=== PATIENT | female | born 1995 | race Caucasian/White ===

== ENCOUNTER 2016-07-20 16:57 | Emergency (ER) | payer MEDICAID ==
[~2016-07-20] VITALS: Ht 160 cm; Wt 91.6 kg
[~2016-07-20 16:57] MED LIST: METR-1 PO; [UNRECOGNIZED DRUG - OTHER]
[2016-07-20 17:04] VITALS: BP 116/65; PULSE 70; RESP 14; TEMP 98.8; O2SAT 97
[2016-07-20 17:31] LABS: BLOOD, URINE NEG (NEG); GLUCOSE,URINE NEG (NEG); KETONE, URINE NEG (NEG); NITRITE,URINE NEG (NEG); PH, URINE 5.5 (5.0-8.5)
[2016-07-20 17:40] LABS: SQUAMOUS EPITHELIAL CELL URINE 0-5 /hpf (0-5); URINE COLOR YELLOW (YELLW/STRAW); WBC, URINE 0-2 /hpf (0-5)
[2016-07-20 17:41] LABS: COMMENT (UR) CULT NOT INDICATED; CULTURE IF INDICATED CULT NOT INDICATED
--- NOTE | 2016-07-20 17:55 | PD ---
HPI Chief Complaint: Abdominal Pain Time Seen by Provider: 17:40 Travel History International Travel<30 days: No Contact w/Intl Traveler<30days: No Traveled to known affect area: No History of Present Illness HPI This 20-year-old female is 3 problems like addressed. She is having some pain in the mid thoracic spine. The pain is aggravated by certain movements. She does have a [id number] child. She also has pain in her left ankle. She says she twisted the ankle about 3 weeks ago. It is still swollen and painful. She is able to bear weight. She is also having some lower abdominal pain. She had a pelvic infection related to her IUD and was given a course of antibiotics a few weeks ago. She is having lower abdominal pain and some pain with bowel movements PFSH Past Medical History Medical History: Denies Significant Hx Diminished Hearing: No Influenza Vaccination: Yes ?: Not Social History Alcohol Use: No Tobacco Use: No Substance Use: Yes (marijuana) Allergies-Medications (Allergen,Severity, Reaction): Coded Allergies: No Known Allergies (Unverified , 07/20/16) Reported Meds & Prescriptions Reported Meds & Active Scripts Active Doxycycline Hyclate 100 Mg Cap 100 Mg PO BID Review of Systems General / Constitutional: No: Fever, Chills Eyes: No: Diploplia, Blurred Vision HENT: No: Headaches, Vertigo Cardiovascular: No: Chest Pain or Discomfort Respiratory: No: Cough, Shortness of Breath Gastrointestinal: No: Vomiting, Diarrhea Genitourinary: Positive: Pelvic Pain, No: Dysuria Musculoskeletal: Positive: Arthralgias, Pain, No: Myalgias Skin: No Rash Hematologic/Lymphatic: No: Easy Bruising Physical Exam Narrative GENERAL: Well-developed female SKIN: Warm and dry. HEAD: Atraumatic. Normocephalic. EYES: Pupils equal and round. No scleral icterus. No injection or drainage. ENT: No nasal bleeding or discharge. Mucous membranes pink and moist. NECK: Trachea midline. No JVD. CARDIOVASCULAR: Regular rate and rhythm. No murmur appreciated. RESPIRATORY: No accessory muscle use. Clear to auscultation. Breath sounds equal bilaterally. GASTROINTESTINAL: Abdomen soft, non-tender, nondistended. Hepatic and splenic margins not palpable. Pelvic: The string of the IUD is visible. There is pain with movement of the cervix. There is minimal discharge which has been sent for culture. No adnexal masses MUSCULOSKELETAL: No obvious deformities. No clubbing. No cyanosis. There is no localized tenderness of the lower thoracic spine. She appears to move well. There is no distal numbness or weakness. She has swelling and tenderness of the lateral aspect of the left ankle. NEUROLOGICAL: Awake and alert. No obvious cranial nerve deficits. Motor grossly within normal limits. Normal speech. PSYCHIATRIC: Appropriate mood and affect; insight and judgment normal. Data Data Last Documented VS Vital Signs Date Time Temp Pulse Resp B/P Pulse Ox O2 Delivery O2 Flow Rate FiO2 07/20/16 17:04 98.8 70 14 116/65 97 Orders Urinalysis - C+S If Indicated (07/20/16 16:59) Ed Urine Pregnancytest Poc (07/20/16 16:59) Ankle, Complete ([id number]) (07/20/16 17:51) Gc And Chlamydia Pcr (07/20/16 18:28) Ceftriaxone Inj (Rocephin Inj) (07/20/16 18:30) Lidocaine 1% Inj (50 Ml) (Xylocaine 1% I (07/20/16 18:30) Labs Laboratory Tests Test 07/20/16 17:20 Urine Color YELLOW Urine Turbidity SLIGHT Urine pH 5.5 Urine Specific [place] 1.025 Urine Protein NEG mg/dL Urine Glucose (UA) NEG mg/dL Urine Ketones NEG mg/dL Urine Occult Blood NEG Urine Nitrite NEG Urine Bilirubin NEG Urine Leukocyte Esterase NEG Urine WBC 0-2 /hpf Urine Squamous Epithelial 0-5 /hpf Cells Microscopic Urinalysis Comment CULT NOT INDICATED MDM Medical Decision Making Medical Screen Exam Complete: Yes Emergency Medical Condition: Yes Medical Record Reviewed: Yes Differential Diagnosis Differential includes musculoskeletal back pain, ankle sprain, cervicitis, PID Narrative Course The back pain appears to be musculoskeletal versus suspect from lifting. She has a [id number] child. Her pelvic pain and I suspect is cervicitis related to her IUD. She has received a course of antibiotics as she does not what it was. I will give Rocephin and doxycycline. I have cautioned her that she may need to have the iud removed. X-ray of the ankle is negative for fracture Diagnosis Primary Impression: Cervicitis Additional Impression: Ankle sprain Qualified Code: S93.432A - Sprain of tibiofibular ligament of left ankle, initial encounter Scripts Doxycycline Hyclate 100 Mg [id number] Mg PO BID #20 CAP Prov:Joshua Braun MD 07/20/16 Disposition: 01 DISCHARGE HOME Condition: Serious Joshua Braun MD Jul 20, 2016 17:55
[2016-07-20] MEDS ORDERED: LIDOCAINE HCL 1% 50 ML VIAL IM ONE (18:30)
[2016-07-20] MEDS ORDERED: cefTRIAXone 250 MG VIAL IM ONE (18:30)
[2016-07-20] MEDS ORDERED: DOXY100C PO (18:32)
--- NOTE | 2016-07-20 19:19 | RADHPO ---
EXAM DATE/TIME: 07/20/2016 18:30 [facility] COMPARISON: No previous studies available for comparison. INDICATIONS : Left ankle pain from trauma. MEDICAL HISTORY : None. SURGICAL HISTORY : None. ENCOUNTER: Initial ACUITY: 1 day PAIN SCORE: 4/10 LOCATION: lateral side of left ankle. FINDINGS: No definite fractures, or dislocations are identified. No definite lytic or sclerotic lesion is seen . The joint spaces are well maintained. CONCLUSION: Unremarkable study. Yenifer Summers MD on July 20, 2016 at 19:17 Board Certified Radiologist. This report was verified electronically.
[2016-07-20 20:00] VITALS: BP 118/65; PULSE 70; RESP 18; O2SAT 97
[2016-07-20 21:33] LABS: CHLAMYDIA PCR NOT DETECTED (NOT DETECT); NEISSERIA PCR NOT DETECTED (NOT DETECT)
== END 2016-07-20 20:01 | disposition home or self-care (01) ==
LOC: PHEFT 16:57 → PHED 20:01
DX: N72 Inflammatory disease of cervix uteri (principal); S93.402A Sprain of unspecified ligament of left ankle, initial encounter; X50.0XXA Overexertion from strenuous movement or load, initial encounter; X50.1XXA Overexertion from prolonged static or awkward postures, initial encounter; Y93.9 Activity, unspecified; Y92.9 Unspecified place or not applicable
CPT/HCPCS: 73610; 81001; 84703; 87491; 87591; 96372; 99284; J0696

== ENCOUNTER → 2017-02-02 | Outpatient (CLI) | payer MEDICAID ==
[~2017-02-02] MED LIST changes: +DOXY10TA PO; -METR-1 PO; +PRENTAB14; +RANI150T PO; -[UNRECOGNIZED DRUG - OTHER]
== END ==
LOC: HPND 09:18
PROVIDERS: ATTEND Family Medicine
DX: Z36 Encounter for antenatal screening of mother (principal)
CPT/HCPCS: 76801

== ENCOUNTER → 2017-03-09 | Outpatient (CLI) | payer MEDICAID ==
[~2017-03-09] MED LIST changes: +INFL1INJ56 IM
== END ==
LOC: HPND 09:49
PROVIDERS: ATTEND Family Medicine
DX: O99.212 Obesity complicating pregnancy, second trimester (principal); E66.09 Other obesity due to excess calories; Z68.30 Body mass index [BMI] 30.0-30.9, adult; Z36.3 Encounter for antenatal screening for malformations
CPT/HCPCS: 76805

== ENCOUNTER → 2017-04-06 | Outpatient (CLI) | payer MEDICAID ==
[~2017-04-06] MED LIST changes: -INFL1INJ56 IM; +PREN28TA2; -PRENTAB14
== END ==
LOC: HPND 09:07
PROVIDERS: ATTEND Family Medicine
DX: O99.212 Obesity complicating pregnancy, second trimester (principal); E66.09 Other obesity due to excess calories; Z68.30 Body mass index [BMI] 30.0-30.9, adult
CPT/HCPCS: 76816

== ENCOUNTER 2017-08-07 19:17 | Inpatient (IN) | payer MEDICAID ==
[2017-08-07] VITALS (43 sets, daily range): PULSE 61–95
[~2017-08-07] VITALS: Ht 160 cm; Wt 85.7 kg
[~2017-08-07 19:17] MED LIST changes: +FERR325T18 PO
[2017-08-07] MEDS ORDERED: SODIUM CHLOR 0.9% 1000 ML INJ 1,000 ML OTHER PRN (20:03)
[2017-08-07] MEDS ORDERED: LACTATED RINGER'S 1000 ML INJ 1,000 ML IV PRN (20:07)
--- NOTE | 2017-08-07 20:10 | HHI.HP ---
HPI Chief Complaint Induction for Lie Instability Date Seen: Aug 07, 2017 Time Seen: 20:00 Travel History International Travel<30 Days: No Contact w/Intl Traveler<30Days: No History of Present Illness HPI Mrs. Vick is a 21-year-old at 40/0 weeks gestation presenting induction secondary to lie instability. Patient stats that over the last week she felt a "really strong kick like the baby moved." At her appointment 2 weeks ago , bedside US showed a vertex fetus, however the week before exam showed a transverse lie. Due to having a Bishops score of 6 in the office on 08/06, it was decided she should be induced at 40 weeks. Currently she has no complaints at this time. She endorses good movement and denies any loss of fluid, vaginal discharge, vaginal bleeding, or dysuria. She also denies a complete review of systems including but not limited to any fevers, chills, shortness of breath, chest pain, MBD, abdominal pain, or calf tenderness. 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 Patient had hemorrhage secondary to uterine atony requiring blood transfusion and multiple medications to assist with hemostasis. Menarche: 12 History of irregular periods every 60 days lasting approximately 3-5 days with moderate bleeding. Past Surgical History Narrative Surgical Past surgical history: None reported Family History Narrative Family History Family history: No significant family medical history reported No reported complications within the family Social History Narrative Social History Social history: Patient currently lives in [facility] with her and son. 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 Tobacco history: Denies tobacco history Medical history: Denies alcohol history Illicit drug history: Denies illicit drug history STI/HIV history: Denies history Allergies-Medications (Allergen,Severity, Reaction): Coded Allergies: No Known Allergies (Unverified Allergy, Unknown, 08/07/17) Home Meds Active Scripts Ferrous Sulfate (Ferrous Sulfate) 325 Mg (65 Mg Iron) Tablet, 325 MG PO DAILY for Nutritional Supplement, #30 TAB 3 Refills Prov:Tremaine Guerra MD R2 06/14/17 Reported Medications Pnv No.95/Ferrous Fum/Folic AC ( Tablet) 1 Each Tablet 12/26/16 Discontinued Scripts Doxylamine-Pyridoxine (Diclegis) 10-10 Mg Tab, 1 TAB PO TID Y for NAUSEA OR VOMITING, #90 TAB 1 Refill Prov:Tremaine Guerra MD R2 01/19/17 Ranitidine (Ranitidine) 150 Mg Tab, 150 MG PO BID for Heartburn Management, #60 TAB 1 Refill Prov:Tremaine Guerra MD R2 01/19/17 Review of Systems Except as stated in HPI: all other systems reviewed are Neg Physical Exam Narrative GENERAL: Well-nourished, well-developed patient. SKIN: Warm and dry. HEAD: Normocephalic and atraumatic. EYES: No scleral icterus. No injection or drainage. ENT: No nasal drainage noted. Mucous membranes pink. Airway patent. NECK: Supple, trachea midline. No JVD. CARDIOVASCULAR: Regular rate and rhythm without murmurs, gallops, or rubs. RESPIRATORY: Breath sounds equal bilaterally. No accessory muscle use. ABDOMEN/GI: Abdomen soft, non-tender, bowel sounds present, no rebound, no guarding Gravid to 40 weeks size GENITOURINARY: External Genitalia: intact and normal in appearance Cervix: Posterior Dilatation: 2.5 cm Effacement: 50% Station: -2 Presentation: Vertex confirmed by bedside ultrasound Membranes: Intact FHT's: Category: 1 Baseline: 130s Reactive: Positive Variability: Moderate Decels: None EXTREMITIES: No cyanosis or edema. BACK: Nontender without obvious deformity. No CVA tenderness. NEUROLOGICAL: Awake and alert. Motor and sensory grossly within normal limits. Five out of 5 muscle strength in all muscle groups. Normal speech. Caprini VTE Risk Assessment Caprini VTE Risk Assessment: Mod/High Risk (score >= 2) Caprini Risk Assessment Model Point Value = 1 Point Value = 2 Point Value = 3 Point Value = 5 Age 41-60 Minor surgery BMI > 25 kg/m2 Swollen legs Varicose veins or History of unexplained or recurrent spontaneous Oral contraceptives or hormone replacement Sepsis (< 1 month) Serious lung disease, including pneumonia (< 1 month) Abnormal pulmonary function Acute myocardial infarction Congestive heart failure (< 1 month) History of inflammatory bowel disease Medical patient at bed rest Age 61-74 Arthroscopic surgery Major open surgery (> 45 min) Laparoscopic surgery (> 45 min) Malignancy Confined to bed (> 72 hours) Immobilizing plaster cast Central venous access Age >= 75 History of VTE Family history of VTE Factor V Leiden Prothrombin [id number] Lupus anticoagulant Anticardiolipin antibodies Elevated serum homocysteine Heparin-induced thrombocytopenia Other congenital or acquired thrombophilia Stroke (< 1 month) Elective arthroplasty Hip, pelvis, or leg fracture Acute spinal cord injury (< 1 month) Prophylaxis Regimen Total Risk Factor Score Risk Level Prophylaxis Regimen 0-1 Low Early ambulation 2 Moderate Order ONE of the following: *Sequential Compression Device (SCD) *Heparin 5000 units SQ BID 3-4 Higher Order ONE of the following medications: *Heparin 5000 units SQ TID *Enoxaparin/Lovenox 40 mg SQ daily (WT < 150 kg, CrCl > 30 mL/min) *Enoxaparin/Lovenox 30 mg SQ daily (WT < 150 kg, CrCl > 10-29 mL/min) *Enoxaparin/Lovenox 30 mg SQ BID (WT < 150 kg, CrCl > 30 mL/min) AND/OR *Sequential Compression Device (SCD) 5 or more Highest Order ONE of the following medications: *Heparin 5000 units SQ TID (Preferred with Epidurals) *Enoxaparin/Lovenox 40 mg SQ daily (WT < 150 kg, CrCl > 30 mL/min) *Enoxaparin/Lovenox 30 mg SQ daily (WT < 150 kg, CrCl > 10-29 mL/min) *Enoxaparin/Lovenox 30 mg SQ BID (WT < 150 kg, CrCl > 30 mL/min) AND *Sequential Compression Device (SCD) Data Data Vital Signs Reviewed: Yes Orders Orders Admit To Inpatient (08/07/17 ) Activity Oob Ad Lien (08/07/17 20:03) ^ Labor Induction (08/07/17 20:03) ^ Vaginal Insert (08/07/17 20:03) ^ Vaginal Lavage (08/07/17 20:03) Heart (08/07/17 20:03) Sodium Chloride 0.9% Flush (Ns Flush) (08/07/17 21:00) Sodium Chloride 0.9% Flush (Ns Flush) (08/07/17 20:15) Sodium Chlor 0.9% 1000 Ml Inj (Ns 1000 M (08/07/17 20:03) Dinoprostone Vag Insert (Cervidil Vag In (08/07/17 20:15) Inpatient Certification (08/07/17 ) Diet Regular Basic (08/07/17 Dinner) Code Status (08/07/17 20:07) Vital Signs (Adult) .Per protocol (08/07/17 20:07) Heart (08/07/17 20:07) Amnioinfusion (08/07/17 20:07) Urinary Catheter Management .ONCE (08/07/17 20:07) Lactated Ringer's 1000 Ml Inj (Lr 1000 M (08/07/17 20:07) Lactated Ringer's 1000 Ml Inj (Lr 1000 M (08/07/17 20:07) Sodium Chlorid 0.9% 500 Ml Inj (Ns 500 M (08/07/17 20:15) Sodium Chlor 0.9% 1000 Ml Inj (Ns 1000 M (08/07/17 20:27) Lidocaine 1% Inj (50 Ml) (Xylocaine 1% I (08/07/17 20:15) Citric Acid-Sodium Citrate Liq (Bicitra (08/07/17 20:15) Ondansetron Inj (Zofran Inj) (08/07/17 20:15) Fentanyl Inj (Fentanyl Inj) (08/07/17 20:15) Fentanyl Inj (Fentanyl Inj) (08/07/17 20:15) Complete Blood Count With Diff (08/07/17 20:07) Hold Clot (08/07/17 20:07) Abo/Rh Blood Type (08/07/17 20:07) Urinalysis - C+S If Indicated (08/07/17 20:07) Drug Screen, Random Urine (08/07/17 20:07) Ob/Psych Drug Screen, Urine (08/07/17 20:07) Resp Oxygen Non Rebreathe Mask (08/07/17 ) ^ Epidural / Intrathecal Infus (08/07/17 20:07) Oxytocin 30 Units-500ml Premix (Pitocin (08/07/17 20:15) Lidocaine 1% Inj (50 Ml) (Xylocaine 1% I (08/07/17 20:15) Light Mineral Oil (Muri-Lube Oil) (08/07/17 20:15) Specimen To Be Collected PRN (08/07/17 20:07) Specimen To Be Collected PRN (08/07/17 20:07) Group B Strep: Negative Assessment/Plan Problem List: (1) 40 weeks gestation of ICD Codes: Z3A.40 - 40 weeks gestation of Status: Acute Assessment and Plan Mrs. Vick is a 21-year-old percent and 40/0 weeks gestation for scheduled induction due to instability. 1. 40 weeks gestation -Continue antepartum care -Encourage oral hydration and vitamin -FHT category 1, reassuring -Bedside ultrasound performed by Dr. Sarmiento, ASSOCIATE BUSINESS ANALYST, confirms vertex positioning at this time with no other abnormalities appreciated -Plan for with augmentation after cervical ripening with Cervidil overnight 2. Anemia -Continue iron supplementation -CBC pending SDW: Dr. Sarmiento Discharge Planning Pending clinical course Tremaine Guerra MD R2 Aug 07, 2017 20:09
[2017-08-07] MEDS: LACTATED RINGER'S 1000 ML INJ 1,000 ML IV SCH (20:14)
[2017-08-07] MEDS ORDERED: OXYTOCIN 30 UNITS-500ML PREMIX 500 ML IV ONE (20:15)
[2017-08-07] MEDS ORDERED: SODIUM CHLORID 0.9% 500 ML INJ 500 ML IV PRN (20:15)
[2017-08-07] MEDS ORDERED: SODIUM CHLORIDE 0.9% FLUSH 10 ML FLUSH IV FLUSH PRN (20:15)
[2017-08-07] MEDS ORDERED: MINERAL OIL 10 ML VIAL TOPICAL PRN (20:15)
[2017-08-07] MEDS ORDERED: DINOPROSTONE 10 MG VAG INSERT VAGINAL ONE (20:15)
[2017-08-07] MEDS ORDERED: ONDANSETRON HCL 4 MG/2 ML VIAL IV PUSH PRN (20:15)
[2017-08-07] MEDS ORDERED: LIDOCAINE HCL 1% 50 ML VIAL I-DERMAL PRN (20:15)
[2017-08-07] MEDS ORDERED: CITRIC ACID-SODIUM CITRATE LIQ 30 ML UDC PO SCH (20:15)
[2017-08-07] MEDS ORDERED: LIDOCAINE HCL 1% 50 ML VIAL INFIL PRN (20:15)
[2017-08-07] MEDS: SODIUM CHLORIDE 0.9% FLUSH 10 ML FLUSH IV FLUSH SCH (20:23)
[2017-08-07] MEDS ORDERED: SODIUM CHLOR 0.9% 1000 ML INJ 1,000 ML IV PRN (20:27)
[2017-08-07] MEDS ORDERED: ZOLPIDEM TARTRATE 5 MG TAB PO PRN (20:45)
[2017-08-07 21:31] LABS: BACTERIA, URINE RARE /hpf; BILIRUBIN, URINE NEG (NEG); BLOOD, URINE NEG (NEG); GLUCOSE,URINE NEG (NEG); KETONE, URINE NEG (NEG); MUCUS URINE FEW /lpf (OCC); NITRITE,URINE NEG (NEG); PH, URINE 5.5 (5.0-8.5); SQUAMOUS EPITHELIAL CELL URINE 2 /hpf (0-5); URINE COLOR LIGHT-YELLOW (YELLW/STRAW); URINE LEUKOCYTE ESTERASE SMALL (NEG)
[2017-08-07 21:50] LABS: BASOPHIL # 0.1 TH/MM3 (0-0.2); BASOPHIL % 0.5 % (0.0-2.0); EOSINOPHIL # 0.1 TH/MM3 (0-0.4); HEMATOCRIT 32.1 % (35.0-46.0); HEMOGLOBIN 10.7 GM/DL (11.6-15.3); LYMPH % 24.2 % (9.0-44.0); LYMPHOCYTE # 2.6 TH/MM3 (1.0-4.8); MEAN CELL VOLUME 76.5 FL (80.0-100.0); MEAN CORPUSCULAR HEMOGLOBIN 25.4 PG (27.0-34.0); MEAN CORPUSCULAR HGB CONC 33.2 % (32.0-36.0); MEAN PLATELET VOLUME 9.4 FL (7.0-11.0); MONO % 8.4 % (0.0-8.0); MONOCYTE # 0.9 TH/MM3 (0-0.9); NEUT % 65.9 % (16.0-70.0); PLATELET COUNT 225 TH/MM3 (150-450); RED CELL DISTRIBUTION WIDTH 15.6 % (11.6-17.2); WHITE BLOOD COUNT 10.5 TH/MM3 (4.0-11.0)
[2017-08-07 22:36] LABS: BANDS 5 % (0-6); LYMPHOCYTES 22 % (9-44); MONOCYTES 9 % (0-8); NEUTROPHIL # MANUAL DIFF 7.2 TH/MM3 (1.8-7.7); POLYS (SEG NEUTROPHILS) 64 % (16-70)
[2017-08-07 22:38] LABS: TOXIC GRANULATION 3+ (NORMAL)
[2017-08-08] VITALS (228 sets, daily range): BP systolic 70–158; BP diastolic 42–118; PULSE 52–245; RESP 0–20; TEMP 98.1–98.7
--- NOTE | 2017-08-08 08:47 | PD.LABORPN ---
Subjective Subjective Patient seen and examined this morning with at bedside. Patient did well overnight without complaints. She endorses good movement and denies any loss of fluid, vaginal discharge, vaginal bleeding or dysuria. She also denies any recent fevers, chills, SOB, chest pain, NVD, or calf tenderness. Objective Vital Signs Vital Signs Date Time Temp Pulse Resp B/P (MAP) Pulse Ox O2 Delivery O2 Flow Rate FiO2 08/08/17 07:55 58 08/08/17 07:50 73 08/08/17 07:40 62 08/08/17 07:35 59 08/08/17 07:30 63 18 08/08/17 07:25 98.1 08/08/17 07:25 64 114/67 (83) 08/08/17 07:25 54 08/08/17 07:20 58 08/08/17 07:15 59 08/08/17 07:10 61 08/08/17 07:05 52 08/08/17 06:55 57 08/08/17 06:50 61 08/08/17 06:45 62 08/08/17 06:40 62 08/08/17 06:35 68 08/08/17 06:30 61 08/08/17 06:25 69 08/08/17 06:20 73 08/08/17 06:15 59 08/08/17 06:10 66 08/08/17 06:05 63 08/08/17 06:00 64 08/08/17 05:55 57 08/08/17 05:45 136 08/08/17 05:40 76 08/08/17 05:35 69 08/08/17 05:30 59 08/08/17 05:25 67 08/08/17 05:20 62 08/08/17 05:15 65 08/08/17 05:10 62 08/08/17 05:05 63 08/08/17 05:00 62 08/08/17 04:55 61 08/08/17 04:50 77 08/08/17 04:44 62 110/55 (73) 08/08/17 04:43 98.4 16 08/08/17 04:40 56 08/08/17 04:35 63 08/08/17 04:30 63 08/08/17 04:25 63 08/08/17 04:20 66 08/08/17 04:15 64 08/08/17 04:10 68 08/08/17 04:05 68 08/08/17 04:00 62 08/08/17 03:55 57 08/08/17 03:50 63 08/08/17 03:45 90 08/08/17 03:40 57 08/08/17 03:35 59 08/08/17 03:30 55 08/08/17 03:25 71 08/08/17 03:20 71 08/08/17 03:15 72 08/08/17 03:10 62 08/08/17 03:05 67 08/08/17 03:00 57 08/08/17 02:55 62 08/08/17 02:50 59 08/08/17 02:45 66 08/08/17 02:40 66 08/08/17 02:35 71 08/08/17 02:30 66 08/08/17 02:25 65 08/08/17 02:20 71 08/08/17 02:15 70 08/08/17 02:10 74 08/08/17 02:05 72 08/08/17 02:00 75 08/08/17 01:55 72 08/08/17 01:50 70 08/08/17 01:45 77 08/08/17 01:40 78 08/08/17 01:35 68 08/08/17 01:30 68 08/08/17 01:25 68 08/08/17 01:20 65 08/08/17 01:15 67 08/08/17 01:10 70 08/08/17 01:05 69 08/08/17 01:00 66 08/08/17 00:55 65 08/08/17 00:50 61 08/08/17 00:45 67 08/08/17 00:40 71 08/08/17 00:35 73 Objective Pelvic Exam: Cervix: Posterior Dilatation: 3-4cm Effacement: 75% Station: -2 Presentation: [-] Membranes: Intact Uterine Contractions: Q3-4m Cervidil Removed FHT's: Category: 1 Baseline: 140s Reactive: Positive Variability: Moderate Decels: None Weeks Gestation: 40 Assessment/Plan Problem List: (1) 40 weeks gestation of ICD Codes: Z3A.40 - 40 weeks gestation of Status: Acute Assessment and Plan Mrs. Vick is a 21-year-old percent and 40/1 weeks gestation for scheduled induction due to instability. 1. 40 weeks gestation -Continue antepartum care -Encourage oral hydration and vitamin -FHT category 1, reassuring -Bedside ultrasound performed by Dr. Sarmiento, [employer]OL[employer]ER, confirms vertex positioning at this time with no other abnormalities appreciated on limited study -Cervidil removed without complications -Patient priti currently every 3-4 minutes, plan to augment labor with Pitocin at this time -Patient to be NPO going forward 2. Anemia -Continue iron supplementation -H/H 10.7/32.1 3. GBS -Negative SDW: Dr. Sarmiento WDW: Tremaine Bhatt MD R2 Aug 08, 2017 08:47
[2017-08-08] MEDS: SODIUM CHLORIDE 0.9% FLUSH 10 ML FLUSH IV FLUSH SCH (09:00)
[2017-08-08] MEDS ORDERED: OXYTOCIN 30 UNITS-500ML PREMIX 500 ML IV PRN (09:30)
[2017-08-08] MEDS: FERROUS SULFATE 325 MG (65 MG ELEMENTAL IRON) TAB PO SCH (09:43)
[2017-08-08] MEDS: LACTATED RINGER'S 1000 ML INJ 1,000 ML IV SCH ×2 (12:07→14:36)
[2017-08-08] MEDS ORDERED: fentaNYL 2MCG-BUPIV 0.125% INJ 100 ML ONE (12:21)
[2017-08-08] MEDS ORDERED: ePHEDrine/NS 25 MG/5 ML SYRINGE ONE (12:21)
[2017-08-08] MEDS ORDERED: DO NOT ADMINISTER ANTICOAGULANTS PRN (13:30)
[2017-08-08] MEDS ORDERED: fentaNYL 2MCG-BUPIV 0.125% 100 ML EPIDURAL SCH (13:30)
[2017-08-08] MEDS ORDERED: NO SYSTEM NARCOTICS PRN (13:30)
[2017-08-08] MEDS ORDERED: ePHEDrine/NS 25 MG/5 ML SYRINGE IV PUSH PRN (13:30)
--- NOTE | 2017-08-08 14:56 | PD.LABORPN ---
Subjective Subjective Patient seen and evaluated. Patient progressing well and is without complaints. SROM at approximately 1316 with clear fluid. Patient then had epidural placed without complications. She endorses good movement and denies any fevers, chills, SOB, chest pain, NVD, vaginal bleeding, or vaginal discharge. Objective Vital Signs Vital Signs Date Time Temp Pulse Resp B/P (MAP) Pulse Ox O2 Delivery O2 Flow Rate FiO2 08/08/17 14:25 70 08/08/17 14:20 82 08/08/17 14:15 72 08/08/17 14:15 78 112/70 (84) 08/08/17 14:01 73 111/65 (80) 08/08/17 14:00 91 08/08/17 14:00 91 08/08/17 13:55 87 08/08/17 13:55 89 08/08/17 13:50 79 08/08/17 13:50 80 08/08/17 13:45 76 08/08/17 13:45 80 08/08/17 13:45 79 116/73 (87) 08/08/17 13:40 73 08/08/17 13:40 74 08/08/17 13:35 77 08/08/17 13:35 75 08/08/17 13:30 75 08/08/17 13:30 76 121/74 (90) 08/08/17 13:30 74 08/08/17 13:25 80 08/08/17 13:25 79 08/08/17 13:20 75 08/08/17 13:20 73 08/08/17 13:15 85 08/08/17 13:15 74 08/08/17 13:15 74 121/80 (94) 08/08/17 13:10 70 08/08/17 13:10 71 08/08/17 13:05 77 08/08/17 13:05 70 08/08/17 13:00 65 08/08/17 13:00 68 08/08/17 13:00 67 107/67 (80) 08/08/17 12:55 67 08/08/17 12:55 69 08/08/17 12:50 68 104/70 (81) 08/08/17 12:50 73 08/08/17 12:50 71 08/08/17 12:45 83 08/08/17 12:45 66 106/72 (83) 08/08/17 12:45 67 08/08/17 12:41 88 112/63 (79) 08/08/17 12:40 84 08/08/17 12:40 85 08/08/17 12:35 78 08/08/17 12:35 98 08/08/17 12:35 99 115/63 (80) 08/08/17 12:30 60 08/08/17 12:30 65 08/08/17 12:30 63 115/77 (90) 08/08/17 12:28 70 118/70 (86) 08/08/17 12:25 87 08/08/17 12:20 82 128/78 (95) 08/08/17 12:20 74 08/08/17 12:15 78 08/08/17 12:10 89 08/08/17 12:05 84 08/08/17 12:00 85 08/08/17 12:00 80 116/67 (83) 08/08/17 12:00 98.7 08/08/17 11:55 75 08/08/17 11:50 66 08/08/17 11:45 68 08/08/17 11:41 70 122/74 (90) 08/08/17 11:40 90 08/08/17 11:30 72 08/08/17 11:25 95 08/08/17 11:20 90 08/08/17 11:20 73 117/75 (89) 08/08/17 11:15 89 08/08/17 11:10 72 08/08/17 11:05 73 08/08/17 11:00 70 120/75 (90) 08/08/17 11:00 66 08/08/17 10:55 72 08/08/17 10:50 70 08/08/17 10:45 89 08/08/17 10:40 76 119/73 (88) 08/08/17 10:40 86 08/08/17 10:35 81 08/08/17 10:30 95 08/08/17 10:25 91 08/08/17 10:20 70 08/08/17 10:20 88 114/77 (89) 08/08/17 10:15 98 08/08/17 10:10 80 08/08/17 10:05 76 08/08/17 10:00 63 08/08/17 10:00 73 114/67 (83) 08/08/17 09:55 85 08/08/17 09:50 88 08/08/17 09:47 71 08/08/17 09:45 118/78 (91) 08/08/17 09:45 81 08/08/17 09:40 81 08/08/17 09:35 77 08/08/17 09:10 61 08/08/17 09:05 104 08/08/17 09:00 93 08/08/17 08:55 76 08/08/17 08:50 73 08/08/17 08:45 64 08/08/17 08:40 54 08/08/17 08:35 68 08/08/17 08:30 62 08/08/17 08:25 63 08/08/17 08:20 64 08/08/17 08:15 63 08/08/17 08:10 57 08/08/17 08:05 57 08/08/17 08:00 57 08/08/17 07:55 58 08/08/17 07:50 73 08/08/17 07:40 62 08/08/17 07:35 59 08/08/17 07:30 63 18 08/08/17 07:25 98.1 08/08/17 07:25 64 114/67 (83) 08/08/17 07:25 54 08/08/17 07:20 58 08/08/17 07:15 59 08/08/17 07:10 61 08/08/17 07:05 52 08/08/17 06:55 57 08/08/17 06:50 61 08/08/17 06:45 62 Objective Pelvic Exam: Per staff Dilatation: 6cm Effacement: 100% Station: -1 Presentation: Vertex Membranes: SROM, clear Uterine Contractions:Q4m FHT's: Category: 1 Baseline: 140s Reactive: Positive Variability: Moderate Decels: None Weeks Gestation: 40 Assessment/Plan Problem List: (1) 40 weeks gestation of ICD Codes: Z3A.40 - 40 weeks gestation of Status: Acute Assessment and Plan Mrs. Vick is a 21-year-old percent and 40/1 weeks gestation for scheduled induction due to instability. 1. 40 weeks gestation -Continue antepartum care -Encourage oral hydration and vitamin -FHT category 1, reassuring -Bedside ultrasound performed by Dr. Sarmiento, BUTTER LIQUEFIER, confirms vertex positioning at this time with no other abnormalities appreciated on limited study -Cervidil removed without complications -Patient priti currently every 3-4 minutes, plan to augment labor with Pitocin at this time -Patient to be NPO going forward -SROM with clear fluid 2. Anemia -Continue iron supplementation -H/H 10.7/32.1 3. GBS -Negative SDW: Tremaine Bhatt MD R2 Aug 08, 2017 14:56
[2017-08-08] MEDS ORDERED: LIDOCAINE 2%/EPINEPHrine PF 1:200,000 20ML SDV ONE (15:22)
[2017-08-08] MEDS ORDERED: BUPIVACAINE HCL PF 0.25% 10 ML VIAL ONE (15:22)
[2017-08-08] MEDS ORDERED: MEASLES, MUMPS, RUBELLA VACCINE 0.5 ML VIAL SQ ONE (16:00)
[2017-08-08] MEDS ORDERED: DIPHTH/TETANUS/ACEL PERTUSSIS (BOOSTER) 0.5 ML VIAL/PFS IM ONE (16:00)
--- NOTE | 2017-08-08 16:22 | PD.LABORPN ---
Subjective Subjective Patient seen and evaluated for variable decelerations. Patient currently without complaints. Endorses good movements and denies any fevers, chills , SOB, chest pain, NVD, vaginal bleeding, or discharge. Objective Vital Signs Vital Signs Date Time Temp Pulse Resp B/P (MAP) Pulse Ox O2 Delivery O2 Flow Rate FiO2 08/08/17 16:05 72 116/69 (85) 08/08/17 16:05 72 08/08/17 16:00 65 08/08/17 16:00 73 112/64 (80) 08/08/17 15:55 75 114/75 (88) 08/08/17 15:55 72 08/08/17 15:50 73 08/08/17 15:50 81 118/73 (88) 08/08/17 15:45 78 08/08/17 15:45 81 115/76 (89) 08/08/17 15:40 84 117/72 (87) 08/08/17 15:40 80 08/08/17 15:35 79 123/71 (88) 08/08/17 15:35 78 08/08/17 15:30 82 115/66 (82) 08/08/17 15:30 83 08/08/17 15:28 20 08/08/17 15:25 70 08/08/17 15:25 107 08/08/17 15:25 119/99 (106) 08/08/17 15:20 63 08/08/17 15:15 74 08/08/17 15:15 71 116/81 (93) 08/08/17 15:10 86 08/08/17 15:05 70 08/08/17 15:00 81 113/67 (82) 08/08/17 15:00 70 08/08/17 14:55 72 08/08/17 14:50 78 08/08/17 14:47 98.2 08/08/17 14:45 70 110/68 (82) 08/08/17 14:45 70 08/08/17 14:40 71 08/08/17 14:35 78 08/08/17 14:30 82 108/73 (85) 08/08/17 14:30 75 08/08/17 14:25 70 08/08/17 14:20 82 08/08/17 14:15 72 3/21/18 14:15 78 112/70 (84) 08/08/17 14:01 73 111/65 (80) 08/08/17 14:00 91 08/08/17 14:00 91 08/08/17 13:55 87 18 13:55 89 18 13:50 79 18 13:50 80 18 13:45 76 18 13:45 80 18 13:45 79 116/73 (87) 08/08/17 13:40 73 18 13:40 74 18 13:35 77 18 13:35 75 18 13:30 75 18 13:30 76 121/74 (90) 08/08/17 13:30 74 18 13:25 80 18 13:25 79 08/08/17 13:20 75 08/08/17 13:20 73 08/08/17 13:15 85 08/08/17 13:15 74 18 13:15 74 121/80 (94) 08/08/17 13:10 70 18 13:10 71 08/08/17 13:05 77 08/08/17 13:05 70 08/08/17 13:00 65 08/08/17 13:00 68 18 13:00 67 107/67 (80) 08/08/17 12:55 67 08/08/17 12:55 69 18 12:50 68 104/70 (81) 08/08/17 12:50 73 18 12:50 71 18 12:45 83 18 12:45 66 106/72 (83) 08/08/17 12:45 67 18 12:41 88 112/63 (79) 08/08/17 12:40 84 18 12:40 85 08/08/18 12:35 78 18 12:35 98 18 12:35 99 115/63 (80) 08/08/17 12:30 60 08/08/18 12:30 65 18 12:30 63 115/77 (90) 08/08/17 12:28 70 118/70 (86) 08/08/17 12:25 87 08/08/17 12:20 82 128/78 (95) 08/08/17 12:20 74 08/08/17 12:15 78 08/08/17 12:10 89 08/08/17 12:05 84 08/08/17 12:00 85 08/08/17 12:00 80 116/67 (83) 08/08/17 12:00 98.7 08/08/17 11:55 75 08/08/17 11:50 66 08/08/17 11:45 68 08/08/17 11:41 70 122/74 (90) 08/08/17 11:40 90 08/08/17 11:30 72 08/08/17 11:25 95 08/08/17 11:20 90 08/08/17 11:20 73 117/75 (89) 08/08/17 11:15 89 08/08/17 11:10 72 08/08/17 11:05 73 08/08/17 11:00 70 120/75 (90) 08/08/17 11:00 66 08/08/17 10:55 72 08/08/17 10:50 70 08/08/17 10:45 89 08/08/17 10:40 76 119/73 (88) 08/08/17 10:40 86 08/08/17 10:35 81 08/08/17 10:30 95 08/08/17 10:25 91 08/08/17 10:20 70 08/08/17 10:20 88 114/77 (89) 08/08/17 10:15 98 08/08/17 10:10 80 08/08/17 10:05 76 08/08/17 10:00 63 08/08/17 10:00 73 114/67 (83) 08/08/17 09:55 85 08/08/17 09:50 88 08/08/17 09:47 71 08/08/17 09:45 118/78 (91) 08/08/17 09:45 81 08/08/17 09:40 81 08/08/17 09:35 77 08/08/17 09:10 61 08/08/17 09:05 104 08/08/17 09:00 93 08/08/17 08:55 76 08/08/17 08:50 73 08/08/17 08:45 64 08/08/17 08:40 54 08/08/17 08:35 68 08/08/17 08:30 62 08/08/17 08:25 63 08/08/17 08:20 64 Objective Pelvic Exam: Cervix: Mid Dilatation: 9cm Effacement: 100% Station: +1 Presentation: Vertex Membranes: SROM, clear Uterine Contractions: Q2-3m FHT's: Category: 2 Baseline: 140s Reactive: Positive Variability: Moderate Decels: Variable decelerations, Acceleration with stimulation Weeks Gestation: 40 Assessment/Plan Problem List: (1) 40 weeks gestation of ICD Codes: Z3A.40 - 40 weeks gestation of Status: Acute Assessment and Plan Mrs. Vick is a 21-year-old percent and 40/1 weeks gestation for scheduled induction due to instability. 1. 40 weeks gestation -Continue antepartum care -Encourage oral hydration and vitamin -FHT category 2 with variable decelerations, accelerations with stimulation, reassuring -Bedside ultrasound performed by Dr. Sarmiento, PATROL AGENT, confirms vertex positioning at this time with no other abnormalities appreciated on limited study -Cervidil removed without complications -Patient priti well, plan to augment labor with Pitocin at this time -Patient to be NPO going forward -SROM with clear fluid 2. Anemia -Continue iron supplementation -H/H 10.7/32.1 3. GBS -Negative DW: Tremaine Bhatt MD R2 Aug 08, 2017 16:22
[2017-08-08] MEDS ORDERED: LIDOCAINE HCL 1% 20 ML VIAL ONE (16:53)
[2017-08-08] MEDS ORDERED: BENZOCAINE 20% TOPICAL SPRAY 60 ML CAN TOPICAL PRN (17:30)
[2017-08-08] MEDS ORDERED: DOCUSATE SODIUM 50 MG/SENNA 8.6 MG TAB PO PRN (17:30)
[2017-08-08] MEDS ORDERED: ALUMINUM/MAGNESIUM/SIMETH 30 ML CUP PO PRN (17:30)
[2017-08-08] MEDS ORDERED: ONDANSETRON ODT 4 MG TAB PO PRN (17:30)
[2017-08-08] MEDS ORDERED: OXYTOCIN 30 UNITS-500ML PREMIX 500 ML IV SCH (17:30)
[2017-08-08] MEDS ORDERED: ZOLPIDEM TARTRATE 5 MG TAB PO PRN (17:30)
[2017-08-08] MEDS ORDERED: SODIUM CHLORIDE 0.9% FLUSH 10 ML FLUSH IV FLUSH PRN (17:30)
[2017-08-08] MEDS ORDERED: ACETAMINOPHEN 325 MG TAB PO PRN (17:30)
[2017-08-08] MEDS ORDERED: WITCH HAZEL 50%/GLYCERIN 12.5% 40 PAD JAR TOPICAL PRN (17:30)
--- NOTE | 2017-08-08 17:37 | PD.OB.DELI ---
Weeks gestation: 40 Medical induction of labor?: Yes Anesthesia: Epidural Episiotomy: None Vaginal Delivery: Normal Presentation: Occiput anterior Nuchal Cord: None (Cord around shoulder x1) Delayed cord clamping (45 sec): Yes Infant: Male Delivery date: Aug 08, 2017 Delivery time: 17:13 One Minute : 9 Five Minute : 9 Weight: 3685 Placenta: Spontaneous delivery, Intact, 3 vessel cord Laceration: No lacerations Estimated blood loss: <100cc Additional Information Mrs. Vick is a 21 y/o G2 now P2 who delivered at 1713. Vaginal delivery was uncomplicated without lacerations. Placenta delivered spontaneously. Apgars were 9/9. Mother and baby resting comfortably in room without complaints. SDW: Tremaine Bhatt MD R2 Aug 08, 2017 17:37
[2017-08-08] MEDS ORDERED: SODIUM CHLORIDE 0.9% FLUSH 10 ML FLUSH IV FLUSH SCH (21:00)
[2017-08-09] MEDS: IBUPROFEN 800 MG TAB PO PRN ×3 (03:13→22:00)
--- NOTE | 2017-08-09 06:18 | HHI.OB ---
Subjective Post Day: 1 Remarks Pt seen and examined this morning. day # 1 AFVSS overnight. Decreased lochia. Denies dysuria. No breast tenderness. She is feeding the baby via breast. Appetite good. No nausea or vomiting. Patient has not yet had a bowel movement, but does endorse bowel gas. Ambulating well. Denies calf pain or shortness of breath. Otherwise, she is doing well this morning and has no other concerns. Objective Vitals/I&O Vital Signs Date Time Temp Pulse Resp B/P (MAP) Pulse Ox O2 Delivery O2 Flow Rate FiO2 08/08/17 21:46 98.4 61 18 114/73 (87) 08/08/17 19:30 18 08/08/17 19:15 69 114/70 (85) 08/08/17 19:09 98.5 18 08/08/17 19:00 66 110/66 (81) 08/08/17 18:54 66 103/65 (78) 08/08/17 18:48 92 82/42 (55) 08/08/17 18:31 75 117/75 (89) 08/08/17 18:15 76 117/79 (92) 08/08/17 18:15 0 08/08/17 18:02 78 110/82 (91) 08/08/17 17:45 111 127/77 (94) 08/08/17 17:30 98.1 18 08/08/17 17:30 121/73 (89) 08/08/17 17:30 81 08/08/17 17:20 81 104/66 (79) 08/08/17 17:16 82 108/77 (87) 08/08/17 17:14 196 105/65 (78) 08/08/17 17:11 83 70/49 (56) 08/08/17 17:10 111 08/08/17 17:06 95 139/52 (81) 08/08/17 17:06 95 139/52 (81) 08/08/17 17:05 79 08/08/17 17:05 79 08/08/17 17:01 245 138/103 (115) 08/08/17 17:01 245 138/103 (115) 08/08/17 17:00 85 08/08/17 16:57 158/118 (131) 08/08/17 16:55 88 08/08/17 16:50 83 08/08/17 16:50 76 126/107 (113) 08/08/17 16:46 125 104/72 (83) 08/08/17 16:45 79 08/08/17 16:41 61 116/77 (90) 08/08/17 16:40 74 08/08/17 16:35 74 08/08/17 16:35 74 115/85 (95) 08/08/17 16:31 68 112/78 (89) 08/08/17 16:30 68 08/08/17 16:25 79 122/81 (95) 08/08/17 16:25 110 08/08/17 16:20 78 08/08/17 16:20 73 118/80 (93) 08/08/17 16:15 79 08/08/17 16:15 64 122/83 (96) 08/08/17 16:11 160 124/108 (113) 08/08/17 16:10 75 08/08/17 16:05 72 116/69 (85) 08/08/17 16:05 72 08/08/17 16:00 65 08/08/17 16:00 73 112/64 (80) 08/08/17 15:55 75 114/75 (88) 08/08/17 15:55 72 08/08/17 15:50 73 08/08/17 15:50 81 118/73 (88) 08/08/17 15:45 78 08/08/17 15:45 81 115/76 (89) 08/08/17 15:40 84 117/72 (87) 08/08/17 15:40 80 08/08/17 15:35 79 123/71 (88) 08/08/17 15:35 78 08/08/17 15:30 82 115/66 (82) 08/08/17 15:30 83 08/08/17 15:28 20 08/08/17 15:25 70 08/08/17 15:25 107 08/08/17 15:25 119/99 (106) 08/08/17 15:20 63 08/08/17 15:15 74 08/08/17 15:15 71 116/81 (93) 08/08/17 15:10 86 08/08/17 15:05 70 08/08/17 15:00 81 113/67 (82) 08/08/17 15:00 70 08/08/17 14:55 72 08/08/17 14:50 78 08/08/17 14:47 98.2 08/08/17 14:45 70 110/68 (82) 08/08/17 14:45 70 08/08/17 14:40 71 08/08/17 14:35 78 08/08/17 14:30 82 108/73 (85) 08/08/17 14:30 75 08/08/17 14:25 70 08/08/17 14:20 82 08/08/17 14:15 72 08/08/17 14:15 78 112/70 (84) 08/08/17 14:01 73 111/65 (80) 08/08/17 14:00 91 08/08/17 14:00 91 08/08/17 13:55 87 08/08/17 13:55 89 08/08/17 13:50 79 08/08/17 13:50 80 08/08/17 13:45 76 08/08/17 13:45 80 08/08/17 13:45 79 116/73 (87) 08/08/17 13:40 73 08/08/17 13:40 74 08/08/17 13:35 77 08/08/17 13:35 75 08/08/17 13:30 75 08/08/17 13:30 76 121/74 (90) 08/08/17 13:30 74 08/08/17 13:25 80 08/08/17 13:25 79 08/08/17 13:20 75 08/08/17 13:20 73 08/08/17 13:15 85 08/08/17 13:15 74 08/08/17 13:15 74 121/80 (94) 08/08/17 13:10 70 08/08/17 13:10 71 08/08/17 13:05 77 08/08/17 13:05 70 08/08/17 13:00 65 08/08/17 13:00 68 08/08/17 13:00 67 107/67 (80) 08/08/17 12:55 67 08/08/17 12:55 69 08/08/17 12:50 68 104/70 (81) 08/08/17 12:50 73 08/08/17 12:50 71 08/08/17 12:45 83 08/08/17 12:45 66 106/72 (83) 08/08/17 12:45 67 08/08/17 12:41 88 112/63 (79) 08/08/17 12:40 84 08/08/17 12:40 85 08/08/17 12:35 78 08/08/17 12:35 98 08/08/17 12:35 99 115/63 (80) 08/08/17 12:30 60 08/08/17 12:30 65 08/08/17 12:30 63 115/77 (90) 08/08/17 12:28 70 118/70 (86) 08/08/17 12:25 87 08/08/17 12:20 82 128/78 (95) 08/08/17 12:20 74 08/08/17 12:15 78 08/08/17 12:10 89 08/08/17 12:05 84 08/08/17 12:00 85 08/08/17 12:00 80 116/67 (83) 08/08/17 12:00 98.7 08/08/17 11:55 75 08/08/17 11:50 66 08/08/17 11:45 68 08/08/17 11:41 70 122/74 (90) 08/08/17 11:40 90 08/08/17 11:30 72 08/08/17 11:25 95 08/08/17 11:20 90 08/08/17 11:20 73 117/75 (89) 08/08/17 11:15 89 08/08/17 11:10 72 08/08/17 11:05 73 18 11:00 70 120/75 (90) 08/08/17 11:00 66 08/08/17 10:55 72 08/08/17 10:50 70 08/08/17 10:45 89 08/08/17 10:40 76 119/73 (88) 08/08/17 10:40 86 08/08/17 10:35 81 08/08/17 10:30 95 08/08/17 10:25 91 3/21/18 10:20 70 08/08/17 10:20 88 114/77 (89) 08/08/17 10:15 98 08/08/17 10:10 80 08/08/17 10:05 76 08/08/17 10:00 63 08/08/17 10:00 73 114/67 (83) 08/08/17 09:55 85 08/08/17 09:50 88 08/08/17 09:47 71 08/08/17 09:45 118/78 (91) 08/08/17 09:45 81 08/08/17 09:40 81 08/08/17 09:35 77 08/08/17 09:10 61 08/08/17 09:05 104 08/08/17 09:00 93 08/08/17 08:55 76 08/08/17 08:50 73 08/08/17 08:45 64 08/08/17 08:40 54 08/08/17 08:35 68 08/08/17 08:30 62 08/08/17 08:25 63 08/08/17 08:20 64 08/08/17 08:15 63 08/08/17 08:10 57 08/08/17 08:05 57 08/08/17 08:00 57 08/08/17 07:55 58 08/08/17 07:50 73 08/08/17 07:40 62 08/08/17 07:35 59 08/08/17 07:30 63 18 08/08/17 07:25 98.1 08/08/17 07:25 64 114/67 (83) 08/08/17 07:25 54 08/08/17 07:20 58 08/08/17 07:15 59 08/08/17 07:10 61 08/08/17 07:05 52 08/08/17 06:55 57 08/08/17 06:50 61 08/08/17 06:45 62 08/08/17 06:40 62 08/08/17 06:35 68 08/08/17 06:30 61 08/08/17 06:25 69 08/08/17 06:20 73 08/08/17 06:15 59 Objective Remarks GENERAL: Well-nourished, well-developed patient. CARDIOVASCULAR: Regular rate and rhythm without murmurs, gallops, or rubs. RESPIRATORY: Breath sounds equal bilaterally. No accessory muscle use. ABDOMEN/GI: Abdomen soft, non-tender. Fundus: Firm, non-tender at umbilicus. GENITOURINARY: Light to moderate bleeding. EXTREMITIES: No cyanosis or edema, non-tender, without signs of DVT. Medications and IVs Current Medications Medications (Trade) Dose Ordered Sig/Maria Route Start Time Stop Time Status Last Admin (Ferrous Sulfate) 325 mg DAILY PO 08/08/17 09:00 08/08/17 09:43 Oxytocin 500 ml @ 2 mls/hr TITRATE PRN IV 08/08/17 09:30 08/08/17 09:44 Miscellaneous Information No systemic narcotics to be given except... UNSCH PRN .XX 08/08/17 13:30 08/09/17 13:29 Miscellaneous Information DO NOT ADMINISTER ANY ANTICOAGUL... UNSCH PRN .XX 08/08/17 13:30 08/09/17 13:29 Fentanyl/ Bupivacaine HCl 100 ml @ 0 mls/hr TITRATE EPIDURAL 08/08/17 13:30 08/08/17 13:40 (ePHEDrine/NS 25 MG/5 ML SYR) 10 mg UNSCH PRN IV PUSH 08/08/17 13:30 08/09/17 13:29 (NS Flush) 2 ml BID IV FLUSH 08/08/17 21:00 (NS Flush) 2 ml UNSCH PRN IV FLUSH 08/08/17 17:30 (Tylenol) 650 mg Q4H PRN PO 08/08/17 17:30 (Motrin) 800 mg Q8H PRN PO 08/08/17 17:30 08/09/17 03:13 (Americaine 20% Top Spr) 1 spray Q4H PRN TOPICAL 08/08/17 17:30 (Tucks Pads) 1 applic QID PRN TOPICAL 08/08/17 17:30 (Thalia-Colace) 2 tab Q12H PRN PO 08/08/17 17:30 (Ambien) 5 mg HS PRN PO 08/08/17 17:30 (Mag-Al Plus Susp Liq) 15 ml Q8H PRN PO 08/08/17 17:30 (Zofran Odt) 4 mg Q6H PRN PO 08/08/17 17:30 Assessment/Plan Problem List: (1) 40 weeks gestation of ICD Codes: Z3A.40 - 40 weeks gestation of Status: Acute Assessment and Plan 21 y/o female who is day # 1 s/p . -Continue routine care. -Motrin PRN pain. -Encouraged OOB. Advised pelvic rest for 6 wks. -Re: ctrl, she would like to discuss her options at her follow up appointment. -Anticipate discharge likely tomorrow. ankush Mishra MD Discharge Planning Likely tomorrow Tremaine Guerra MD R2 Aug 09, 2017 06:18
[2017-08-09 07:40] VITALS: BP 111/60; PULSE 55; RESP 18; TEMP 98.2; O2SAT 98
[2017-08-09 20:52] VITALS: BP 125/69; PULSE 67; RESP 18; TEMP 98.2
[2017-08-09] MEDS: FERROUS SULFATE 325 MG (65 MG ELEMENTAL IRON) TAB PO SCH (22:00)
[2017-08-10 08:00] VITALS: BP 108/59; PULSE 69; RESP 18; TEMP 98.2; O2SAT 96
[2017-08-10] MEDS ORDERED: PERI PO (08:19)
[2017-08-10] MEDS ORDERED: IBUP1TAB7 PO (08:19)
--- NOTE | 2017-08-10 08:19 | HHI.OB ---
Subjective Post Day: 2 Remarks Pt seen and examined this morning. day # 2 AFVSS overnight. Decreased lochia. Denies dysuria. No breast tenderness. She is feeding the baby via breast. Appetite good. No nausea or vomiting. Patient has had a bowel movement and continues to pass bowel gas without issues. Ambulating well. Denies calf pain or shortness of breath. Otherwise, she is doing well this morning and has no other concerns. Objective Vitals/I&O Vital Signs Date Time Temp Pulse Resp B/P (MAP) Pulse Ox O2 Delivery O2 Flow Rate FiO2 08/09/17 20:52 98.2 67 18 125/69 (87) Objective Remarks GENERAL: Well-nourished, well-developed patient. CARDIOVASCULAR: Regular rate and rhythm without murmurs, gallops, or rubs. RESPIRATORY: Breath sounds equal bilaterally. No accessory muscle use. ABDOMEN/GI: Abdomen soft, non-tender. Fundus: Firm, non-tender at umbilicus. GENITOURINARY: Light to moderate bleeding. EXTREMITIES: No cyanosis or edema, non-tender, without signs of DVT. Medications and IVs Current Medications Medications (Trade) Dose Ordered Sig/Maria Route Start Time Stop Time Status Last Admin (Ferrous Sulfate) 325 mg DAILY PO 08/08/17 09:00 08/09/17 22:00 Oxytocin 500 ml @ 2 mls/hr TITRATE PRN IV 08/08/17 09:30 08/08/17 09:44 Fentanyl/ Bupivacaine HCl 100 ml @ 0 mls/hr TITRATE EPIDURAL 08/08/17 13:30 08/08/17 13:40 (NS Flush) 2 ml BID IV FLUSH 08/08/17 21:00 (NS Flush) 2 ml UNSCH PRN IV FLUSH 08/08/17 17:30 (Tylenol) 650 mg Q4H PRN PO 08/08/17 17:30 (Motrin) 800 mg Q8H PRN PO 08/08/17 17:30 08/09/17 22:00 (Americaine 20% Top Spr) 1 spray Q4H PRN TOPICAL 08/08/17 17:30 (Tucks Pads) 1 applic QID PRN TOPICAL 08/08/17 17:30 (Thalia-Colace) 2 tab Q12H PRN PO 08/08/17 17:30 (Ambien) 5 mg HS PRN PO 08/08/17 17:30 (Mag-Al Plus Susp Liq) 15 ml Q8H PRN PO 08/08/17 17:30 (Zofran Odt) 4 mg Q6H PRN PO 08/08/17 17:30 Assessment/Plan Problem List: (1) 40 weeks gestation of ICD Codes: Z3A.40 - 40 weeks gestation of Status: Acute Assessment and Plan 21 y/o female who is day #2 s/p . -Continue routine care. -Motrin PRN pain. -Encouraged OOB. Advised pelvic rest for 6 wks. -Re: ctrl, she would like to discuss an IUD at her follow up appointment. -Anticipate discharge today. ankush Casas MD Discharge Planning Today with baby CharlieTremaine Marroquin MD R2 Aug 10, 2017 08:19
--- NOTE | 2017-08-10 08:20 | HHI.DCPOC ---
Discharge Care Plan Diagnosis: (1) (spontaneous vaginal delivery) Report Symptoms to Your Doctor -Temperature above 100.5 degrees -Redness, of incision or excessive or foul smelling drainage -Unusual pain or calf pain -Increased vaginal bleeding -Painful or difficulty urinating -Feelings of extreme sadness or anxiety after 2 weeks Goals to Promote Your Health * To prevent worsening of your condition and complications * To maintain your health at the optimal level Directions to Meet Your Goals Take your medications as prescribed Follow your dietary instruction Follow activity as directed Ensure plenty of rest for recovery Drink fluids for hydration Keep your appointments as scheduled Take your immunizations and boosters as scheduled If your symptoms worsen call your PCP, if no PCP go to Urgent Care Center or Emergency Room Smoking is Dangerous to Your Health. Avoid second hand smoke Call the 24-hour crisis hotline for domestic abuse at Tremaine Guerra MD R2 Aug 10, 2017 08:20
[2017-08-10] MEDS: FERROUS SULFATE 325 MG (65 MG ELEMENTAL IRON) TAB PO SCH (09:39)
== END 2017-08-10 13:19 | disposition home or self-care (01) | DRG 775 ==
LOC: H2EB 19:17 → H1EA 08-08 20:18
PROVIDERS: ADMIT Obstetrics & Gynecology; ATTEND Obstetrics & Gynecology
PROC: 3E0P7VZ Introduction of Hormone into Female Reproductive, Via Natural or Artificial Opening (ICD-10-PCS; 2017-08-07)
PROC: 10E0XZZ Delivery of Products of Conception, External Approach (ICD-10-PCS; principal; 2017-08-08)
PROC: 3E0R3BZ Introduction of Anesthetic Agent into Spinal Canal, Percutaneous Approach (ICD-10-PCS; 2017-08-08)
PROC: 00HU33Z Insertion of Infusion Device into Spinal Canal, Percutaneous Approach (ICD-10-PCS; 2017-08-08)
DX: O32.0XX0 Maternal care for unstable lie, not applicable or unspecified (principal); O99.02 Anemia complicating childbirth; D64.9 Anemia, unspecified; Z37.0 Single live birth; Z3A.40 40 weeks gestation of pregnancy
CPT/HCPCS: 59025; 76815; 80307; 81001; 85007; 85027; 86900; 86901; G0481; J2590; J3010; J7120